=== PATIENT | male | born 1960 | race Caucasian/White ===

== ENCOUNTER 2019-07-05 18:03 | Emergency (ER) | payer MEDICAID ==
[~2019-07-05] VITALS: Ht 177.8 cm; Wt 81.0 kg
[2019-07-05 20:36] VITALS: BP 122/90
== END 2019-07-05 20:38 | disposition home or self-care (01) ==
LOC: ER 18:03
DX: F10.129 Alcohol abuse with intoxication, unspecified (principal); Y90.9 Presence of alcohol in blood, level not specified; R03.0 Elevated blood-pressure reading, without diagnosis of hypertension
CPT/HCPCS: 82962; 99283